=== PATIENT | male | born 1960 | race Asian ===

== ENCOUNTER 2017-01-30 08:02 | Day surgery (SDC) | payer OTHER ==
[~2017-01-30] VITALS: Ht 175.3 cm; Wt 79.4 kg
[~2017-01-30 08:02] MED LIST: LANTUS 3 M100 UNITS1 SC; LITE COAT ASPI325 M1 PO
[2017-01-30] MEDS ORDERED: GLUCOPHAGE500 MG PO (08:32)
[2017-01-30 08:43] VITALS: BP 136/85
[2017-01-30 10:49] LABS: POINT-OF-CARE METER ID UU13113675
[2017-01-30 11:15] VITALS: BP 144/88
[2017-01-30 15:51] LABS: POINT-OF-CARE METER ID UU13113694
== END 2017-01-30 11:38 | disposition home or self-care (01) ==
LOC: SDC 08:02
PROVIDERS: Internal Medicine
DX: E11.3592 Type 2 diabetes mellitus with proliferative diabetic retinopathy without macular edema, left eye (principal); H43.12 Vitreous hemorrhage, left eye; E11.621 Type 2 diabetes mellitus with foot ulcer; L97.509 Non-pressure chronic ulcer of other part of unspecified foot with unspecified severity; E11.65 Type 2 diabetes mellitus with hyperglycemia; I10 Essential (primary) hypertension; E78.2 Mixed hyperlipidemia; Z79.84 Long term (current) use of oral hypoglycemic drugs; Z79.4 Long term (current) use of insulin; Z91.19 Patient's noncompliance with other medical treatment and regimen; Z79.82 Long term (current) use of aspirin; Z87.891 Personal history of nicotine dependence
CPT/HCPCS: 82948; 93005; J0690; J1815; J3300

== ENCOUNTER 2017-03-27 06:02 | Day surgery (SDC) | payer OTHER ==
[~2017-03-27] VITALS: Ht 175.3 cm; Wt 79.4 kg
[~2017-03-27 06:02] MED LIST changes: +GLUCOPHAGE500 MG PO
[2017-03-27 07:19] LABS: POINT-OF-CARE METER ID UU14174212
[2017-03-27 07:24] VITALS: BP 139/92
[2017-03-27 09:50] LABS: POINT-OF-CARE METER ID UU13113675
[2017-03-27 10:07] LABS: POINT-OF-CARE METER ID UU13113675
[2017-03-27 10:30] VITALS: BP 163/93
[2017-03-27 10:55] VITALS: BP 144/91
== END 2017-03-27 11:05 | disposition home or self-care (01) ==
LOC: SDC 06:02
PROVIDERS: Internal Medicine
DX: E11.3531 Type 2 diabetes mellitus with proliferative diabetic retinopathy with traction retinal detachment not involving the macula, right eye (principal); H43.11 Vitreous hemorrhage, right eye; Z79.4 Long term (current) use of insulin; Z79.82 Long term (current) use of aspirin; Z87.891 Personal history of nicotine dependence
CPT/HCPCS: 82948; J0690; J2405; J3300